=== PATIENT | female | born 1980 | race Hispanic/Latino ===

== ENCOUNTER → 2018-11-18 | Day surgery (SDC) | payer BC ==
[~2018-11-18] MED LIST: FENTANYL CITRATE/PF 100MCG/2 ML INJ ONE; LINZESS; METOCLOPRAMIDE HCL 10 MG/2ML VIAL ONE; MIDAZOLAM HCL 2 MG/2 ML VIAL ONE; PHENTERMINE HCL15 MG; PROPOFOL IV EMULSION 10 MG/ML 20 ML VIAL ONE; PROPOFOL IV EMULSION 10 MG/ML 50 ML VIAL ONE; VITAMIN D400 UNIT PO; [UNRECOGNIZED DRUG - OTHER]
[2018-11-18 18:15] VITALS: BP 107/77
--- NOTE | 2018-11-18 18:22 | Operative Report ---
DATE OF PROCEDURE: 11/18/2018 SURGEON: Jay Solorzano MD PROCEDURE: Esophagogastroduodenoscopy. INDICATION FOR PROCEDURE: Acid reflux. MEDICATIONS: The patient was done under MAC, please see anesthesiologist's note. PROCEDURE IN DETAIL: With the patient in left lateral decubitus position, a flexible fiberoptic Olympus gastroscope was introduced into the esophagus under direct visualization without any difficulty. There was some patchy erythema noted in the distal esophagus. The scope was then advanced with ease into the stomach and the mucosa overlying the antrum and the body revealed some diffuse erythema and [id number] edema and biopsies were obtained and sent to stain for H pylori. Pylorus was of normal contour and shape, it was intubated with ease and the scope was advanced all the way to the second portion of the duodenum. The scope was then withdrawn slowly. Mucosa overlying the proximal second portion appeared to be within normal limits. There was some patchy erythema noted in the duodenal bulb. Biopsies were obtained to rule out sprue. The scope was then withdrawn back into the stomach and retroflexed and a lap band was noted and it appeared to be intact and in good position. The scope was then straightened out, it was subsequently withdrawn. The patient tolerated the procedure well. IMPRESSION: 1. Distal esophagitis. 2. Status post lap band intact and in good position. 3. Gastritis, biopsied. Biopsies sent to stain for Helicobacter pylori. 4. Rule out sprue. PLAN: Follow up histology. Initiate Protonix 40 mg one p.o. q.a.m. a.c. Jay Solorzano MD [facility] [place]/[facility] [place] /[id number]
== END | disposition home or self-care (01) ==
LOC: OR 12:41 → EDSEX 14:30
PROVIDERS: ATTEND Internal Medicine Gastroenterology
DX: R10.32 Left lower quadrant pain (principal); K21.9 Gastro-esophageal reflux disease without esophagitis; K20.9 Esophagitis, unspecified; Z98.84 Bariatric surgery status; K29.70 Gastritis, unspecified, without bleeding; Z88.1 Allergy status to other antibiotic agents; K29.50 Unspecified chronic gastritis without bleeding; B96.81 Helicobacter pylori [H. pylori] as the cause of diseases classified elsewhere; Z01.812 Encounter for preprocedural laboratory examination; K44.9 Diaphragmatic hernia without obstruction or gangrene; R10.31 Right lower quadrant pain
CPT/HCPCS: 43239; 81025; J2250; J2704 ×2; J2765; J3010